=== PATIENT | male | born 1965 | race Caucasian/White ===

== ENCOUNTER → 2022-01-29 | Outpatient (REF) | LOC: LAB 08:13 | DX: E13.65 Other specified diabetes mellitus with hyperglycemia (principal) ==

== ENCOUNTER → 2023-08-23 | Outpatient (CLI) | payer BC | LOC: LAB 12:05 | DX: E13.65 Other specified diabetes mellitus with hyperglycemia (principal) ==

== ENCOUNTER → 2023-11-22 | Outpatient (CLI) | payer BC ==
[2023-11-22 09:43] LABS: BASO # 0.03 K/mm3 (0.02-0.10); EOS % 4.6 % (0.0-4.0); HEMATOCRIT 47.8 % (42.0-52.0); HEMOGLOBIN 15.9 g/dL (13.5-18.0); LYMPH# 1.95 K/mm3 (1.50-4.00); MEAN CELL VOLUME 84 fl (78-100); MEAN CORPUSCULAR HEMOGLOBIN 28 pg (27-31); MEAN CORPUSCULAR HGB CONC 33 g/dL (33-37); MONO # 0.45 K/mm3 (0.20-0.80); NEU # 3.81 K/mm3 (1.40-6.50); PLATELET COUNT 200 K/mm3 (130-400); RED BLOOD COUNT 5.69 M/mm3 (4.20-5.60); RED CELL DISTRIBUTION WIDTH 12.7 % (11.5-14.5); WHITE BLOOD COUNT 6.6 K/mm3 (4.8-10.8)
[2023-11-22 09:46] LABS: ALBUMIN 3.9 g/dL (3.5-5.0)
[2023-11-22 09:47] LABS: CALCIUM 9.1 mg/dL (8.3-10.5)
[2023-11-22 09:48] LABS: TOTAL PROTEIN 6.7 g/dL (6.4-8.3)
[2023-11-22 09:50] LABS: TOTAL BILIRUBIN 0.7 mg/dL (0.2-1.2)
== END ==
LOC: LAB 09:16
PROVIDERS: Family Medicine
DX: E13.65 Other specified diabetes mellitus with hyperglycemia (principal); R53.83 Other fatigue